=== PATIENT | female | born 2000 | race Caucasian/White ===

== ENCOUNTER → 2022-07-30 | Outpatient (REF) | payer MEDICARE | LOC: M LAB REF 18:00 | PROVIDERS: ATTEND Nurse Practitioner Family | DX: J02.9 Acute pharyngitis, unspecified (principal) ==

== ENCOUNTER 2022-10-17 13:57 | Emergency (ER) | payer OTHER, MEDICARE ==
[~2022-10-17] VITALS: Ht 182.9 cm; Wt 86.4 kg
[2022-10-17 16:58] VITALS: BP 123/65
== END 2022-10-17 16:59 | disposition home or self-care (01) ==
LOC: M ED 13:57
DX: S90.32XA Contusion of left foot, initial encounter (principal); W20.8XXA Other cause of strike by thrown, projected or falling object, initial encounter; F17.200 Nicotine dependence, unspecified, uncomplicated; Y99.0 Civilian activity done for income or pay

== ENCOUNTER → 2022-11-13 | Outpatient (REF) ==
[2022-11-13 11:20] LABS: RSV AMPLIFICATION NEGATIVE (NEGATIVE)
== END ==
LOC: M EMP 09:49
PROVIDERS: ATTEND Family Medicine
DX: Z11.59 Encounter for screening for other viral diseases (principal)

== ENCOUNTER 2023-04-22 14:28 | Emergency (ER) | payer OTHER, MEDICARE ==
[~2023-04-22] VITALS: Ht 182.9 cm; Wt 78.7 kg
[2023-04-22 14:29] VITALS: TEMP 98.4
[2023-04-22] MEDS ORDERED: TEST25GE2 (14:52)
[2023-04-22] MEDS ORDERED: IBUPROFEN 600MG TAB PO ONE (16:20)
[2023-04-22] MEDS ORDERED: IBUP-1022 PO (16:21)
[2023-04-22 16:46] VITALS: BP 126/68; O2SAT 98
== END 2023-04-22 16:47 | disposition home or self-care (01) ==
LOC: M ED 14:28
DX: S93.602A Unspecified sprain of left foot, initial encounter (principal); Y99.0 Civilian activity done for income or pay

== ENCOUNTER → 2023-05-06 | Outpatient (REF) | payer MEDICARE, OTHER ==
[~2023-05-06] MED LIST: IBUP-1022 PO; PROA1AER2 INH; TEST25GE2; TRAM50TA2 PO
[2023-05-06 16:54] LABS: BASO % 0.3 % (0.0-1.0); EOS # 0.1 10^3/uL (0.0-0.5); EOS % 1.3 % (0.0-3.0); HEMOGLOBIN 13.8 g/dl (12.0-15.5); LYMPH # 1.7 10^3/uL (1.5-5.0); LYMPH % 21.7 % (24.0-44.0); MEAN CORPUSCULAR HEMOGLOBIN 30.4 pg (27.0-33.0); MEAN CORPUSCULAR HGB CONC 32.9 g/dl (32.0-36.5); MEAN CORPUSCULAR VOLUME 92.5 fl (80.0-96.0); MONO # 0.7 10^3/uL (0.0-0.8); MONO % 8.6 % (2.0-8.0); NEUTROPHILS # 5.2 10^3/uL (1.5-8.5); NEUTROPHILS % 67.8 % (36.0-66.0); PLATELET COUNT, AUTOMATED 160 10^3/uL (150-450); RED BLOOD COUNT 4.54 10^6/uL (4.00-5.40); WHITE BLOOD COUNT 7.7 10^3/uL (4.0-10.0)
[2023-05-06 17:10] LABS: BLOOD UREA NITROGEN 12 MG/DL (9-23); CALCIUM LEVEL 8.8 MG/DL (8.5-10.1); CARBON DIOXIDE LEVEL 31 MMOL/L (20-31); CHLORIDE LEVEL 104 MMOL/L (98-107); CREATININE FOR GFR 0.78 MG/DL (0.55-1.30); GLOMERULAR FILTRATION RATE > 60.0 (>60); GLUCOSE, FASTING 70 MG/DL (60-100); POTASSIUM SERUM 4.1 MMOL/L (3.5-5.1); SODIUM LEVEL 140 MMOL/L (136-145)
== END ==
LOC: M LAB REF 16:11
PROVIDERS: ATTEND Pediatrics
DX: Z01.818 Encounter for other preprocedural examination (principal)

== ENCOUNTER → 2023-05-08 | Outpatient (CLI) | payer MEDICARE ==
[~2023-05-08] MED LIST changes: -PROA1AER2 INH; -TRAM50TA2 PO
== END ==
LOC: M RAD 10:19
PROVIDERS: ATTEND Pediatrics
DX: Z01.818 Encounter for other preprocedural examination (principal)

== ENCOUNTER 2023-05-21 10:01 | Observation (INO) | payer OTHER ==
[2023-05-21] VITALS (7 sets, daily range): BP systolic 111–128; BP diastolic 59–78; TEMP 97.3–97.7; O2SAT 97–98
[~2023-05-21] VITALS: Ht 180.3 cm; Wt 76.7 kg
[~2023-05-21 10:01] MED LIST changes: +HEPARIN SOD (PORCINE) 5000UNITS/ML 1ML VIAL/SYRINGE SQ ONE; +LIDOCAINE 2% 100MG/5ML SDV (FOR ANES.) As Ordered ONE; +MIDAZOLAM INJ 2MG/2ML VIAL As Ordered ONE; +ONDANSETRON 4MG 2ML VIAL As Ordered ONE; +PROA1AER2 INH; +ROCURONIUM BROMIDE 50MG/5ML VIAL As Ordered ONE; +ceFAZolin SOD 2 GM in IV 1 EA IV ONE; +fentaNYL 250 MCG/5 ML INJECTION As Ordered ONE; +propofoL 200 MG/20 ML VIAL As Ordered ONE
[2023-05-21] MEDS: LR 1,000 ML IV SCH ×3 (10:47→18:30)
[2023-05-21] MEDS ORDERED: TEST25GE2 (11:10)
[2023-05-21] MEDS ORDERED: LIDOCAINE 1% SDV 30ML VIAL As Ordered ONE (12:06)
[2023-05-21] MEDS ORDERED: GENTAMICIN SULF 80MG/2ML VIAL As Ordered ONE (12:06)
[2023-05-21] MEDS ORDERED: LIDOCAINE 1% MDV 20ML VIAL As Ordered ONE (12:07)
[2023-05-21] MEDS ORDERED: EPINEPHrine INJ 1 MG/ML 1ML AMP As Ordered ONE ×2 (12:07→17:02)
[2023-05-21] MEDS ORDERED: ROCURONIUM BROMIDE 50MG/5ML VIAL As Ordered ONE (13:46)
[2023-05-21] MEDS ORDERED: SUGAMMADEX SODIUM 500 MG/5 ML VIAL (BRIDION) As Ordered ONE (14:13)
[2023-05-21] MEDS ORDERED: HYDROmorphone HCL 2MG/ML 1ML VIAL As Ordered ONE (14:13)
[2023-05-21] MEDS ORDERED: ACETAMINOPHEN 1000MG 100ML IV BAG As Ordered ONE (14:13)
[2023-05-21] MEDS ORDERED: ePHEDrine SULFATE 25 MG/5 ML(5MG/ML) SYRINGE As Ordered ONE (14:13)
[2023-05-21] MEDS ORDERED: LR 1,000 ML IV SCH (16:10)
[2023-05-21] MEDS ORDERED: ONDANSETRON 4MG 2ML VIAL IV PRN ×2 (16:10→16:40)
[2023-05-21] MEDS ORDERED: PERCOCET 5MG/325MG TAB PO PRN (16:10)
[2023-05-21] MEDS ORDERED: ACETAMINOPHEN TAB 650MG DOSE (2X325MG) PO PRN (16:10)
[2023-05-21] MEDS ORDERED: traMADol 50 MG TAB PO PRN (16:10)
[2023-05-21] MEDS ORDERED: fentaNYL 100 MCG/2 ML INJECTION IV PRN (16:40)
[2023-05-21] MEDS ORDERED: oxyCODONE 5MG TAB PO PRN (16:40)
[2023-05-21] MEDS ORDERED: MORPHINE 2 MG/ML 1ML VIAL IV PRN (16:40)
[2023-05-21] MEDS ORDERED: ceFAZolin SOD 2 GM in IV 1 EA IV ONE (17:30)
[2023-05-21] MEDS ORDERED: PROMETHAZINE 25MG/ML 1ML VIAL IV ONE (19:55)
[2023-05-22 03:50] VITALS: BP 117/60; TEMP 98.1; O2SAT 97
[2023-05-22] MEDS ORDERED: TRAM50TA2 PO (08:33)
== END 2023-05-22 11:50 | disposition home or self-care (01) ==
LOC: M SDC 10:01 → M MS5PR 10:02
PROVIDERS: ADMIT Plastic Surgery Surgery of the Hand; ATTEND Plastic Surgery Surgery of the Hand
DX: N62 Hypertrophy of breast (principal); F64.9 Gender identity disorder, unspecified; J45.909 Unspecified asthma, uncomplicated; F17.200 Nicotine dependence, unspecified, uncomplicated; Z79.51 Long term (current) use of inhaled steroids; Z79.899 Other long term (current) drug therapy
CPT/HCPCS: 19316; 19318; 81025; 88300; 88305; 96365; 96375; J0131; J0171; J0690; J1100; J1170; J1580; J2250; J2405; J2550; J3010

== ENCOUNTER → 2023-09-17 | Outpatient (REF) ==
[~2023-09-17] MED LIST changes: -HEPARIN SOD (PORCINE) 5000UNITS/ML 1ML VIAL/SYRINGE SQ ONE; -LIDOCAINE 2% 100MG/5ML SDV (FOR ANES.) As Ordered ONE; -MIDAZOLAM INJ 2MG/2ML VIAL As Ordered ONE; -ONDANSETRON 4MG 2ML VIAL As Ordered ONE; -ROCURONIUM BROMIDE 50MG/5ML VIAL As Ordered ONE; +TRAM50TA2 PO; -ceFAZolin SOD 2 GM in IV 1 EA IV ONE; -fentaNYL 250 MCG/5 ML INJECTION As Ordered ONE; -propofoL 200 MG/20 ML VIAL As Ordered ONE
== END ==
LOC: M EMP 12:35
PROVIDERS: ATTEND Family Medicine
DX: Z53.9 Procedure and treatment not carried out, unspecified reason (principal)

== ENCOUNTER → 2024-02-05 | Outpatient (REF) | payer OTHER ==
[2024-02-05 14:10] LABS: BASO % 0.3 % (0.0-1.0); EOS # 0.2 10^3/uL (0.0-0.5); EOS % 2.6 % (0.0-3.0); HEMATOCRIT 47.2 % (36.0-47.0); HEMOGLOBIN 15.4 g/dl (12.0-15.5); LYMPH # 1.3 10^3/uL (1.5-5.0); LYMPH % 21.9 % (24.0-44.0); MEAN CORPUSCULAR HEMOGLOBIN 29.9 pg (27.0-33.0); MEAN CORPUSCULAR HGB CONC 32.6 g/dl (32.0-36.5); MEAN CORPUSCULAR VOLUME 91.7 fl (80.0-96.0); MONO # 0.7 10^3/uL (0.0-0.8); MONO % 12.8 % (2.0-8.0); NEUTROPHILS # 3.6 10^3/uL (1.5-8.5); NEUTROPHILS % 62.1 % (36.0-66.0); PLATELET COUNT, AUTOMATED 169 10^3/uL (150-450); RED BLOOD COUNT 5.15 10^6/uL (4.00-5.40); WHITE BLOOD COUNT 5.8 10^3/uL (4.0-10.0)
[2024-02-05 14:36] LABS: CHOLESTEROL RISK RATIO 5.27 (<5); HDL CHOLESTEROL 31.3 MG/DL (>40); LDL CHOLESTEROL 109.3 MG/DL (<100); NON-HDL-C 133.7 MG/DL
[2024-02-05 14:40] LABS: THYROID STIMULATING HORMONE 2.601 uIU/ML (0.55-4.78)
== END ==
LOC: M LAB REF 12:45
PROVIDERS: ATTEND Pediatrics
DX: F64.0 Transsexualism (principal); L70.0 Acne vulgaris

== ENCOUNTER → 2024-12-08 | Outpatient (REF) | LOC: M EMP 12:55 | PROVIDERS: ATTEND Family Medicine | DX: Z11.52 Encounter for screening for COVID-19 (principal) ==

== ENCOUNTER → 2025-03-17 | Outpatient (REF) ==
[~2025-03-17] MED LIST changes: +TEST200I14 IM
== END ==
LOC: M EMP 08:33
PROVIDERS: ATTEND Family Medicine
DX: Z01.89 Encounter for other specified special examinations (principal)

== ENCOUNTER → 2025-09-02 | Outpatient (REF) | payer OTHER ==
[~2025-09-02] MED LIST changes: -IBUP-1022 PO; +IBUP600T42 PO
== END ==
LOC: M LAB REF 15:57
PROVIDERS: ATTEND Physician Assistant Medical
DX: B34.9 Viral infection, unspecified (principal)